=== PATIENT | female | born 1970 ===

== ENCOUNTER 2018-02-19 12:45 | Inpatient (IN) | payer OTHER ==
[~2018-02-19] VITALS: Ht 165.1 cm; Wt 79.4 kg
[~2018-02-19 12:45] MED LIST: IBESARTAN PO
[2018-02-27] MEDS ORDERED: GABAPENTIN600 MG PO (07:20)
[2018-02-27] MEDS ORDERED: IBUPROFEN800 MG PO (07:20)
[2018-02-27] MEDS ORDERED: POLY119PG PO (07:20)
== END 2018-02-27 09:49 | disposition home or self-care (01) | DRG 743 ==
LOC: OB/GYN 02-25 05:50 → O/R 02-25 05:50 → OB/GYN 02-25 11:16 → SURH 02-25 12:45 → OB/GYN 02-27 09:49
PROVIDERS: Obstetrics & Gynecology
PROC: 0UT70ZZ Resection of Bilateral Fallopian Tubes, Open Approach (ICD-10-PCS; 2018-02-25)
PROC: 0UT90ZZ Resection of Uterus, Open Approach (ICD-10-PCS; principal; 2018-02-25 15:45)
DX: D25.1 Intramural leiomyoma of uterus (principal); D25.0 Submucous leiomyoma of uterus; I10 Essential (primary) hypertension